=== PATIENT | male | born 1990 | race Two or more races ===

== ENCOUNTER 2022-01-09 11:58 | Emergency (ER) | payer OTHER ==
[~2022-01-09] VITALS: Ht 170.2 cm; Wt 95.3 kg
[2022-01-09] MEDS ORDERED: OSEL75CA PO (14:46)
== END 2022-01-09 14:54 | disposition home or self-care (01) ==
LOC: ER 11:58
DX: J10.1 Influenza due to other identified influenza virus with other respiratory manifestations (principal); Z20.822 Contact with and (suspected) exposure to COVID-19

== ENCOUNTER 2022-03-01 12:18 | Emergency (ER) | payer OTHER ==
[~2022-03-01] VITALS: Ht 170.2 cm; Wt 104.3 kg
[~2022-03-01 12:18] MED LIST: OSEL75CA PO
== END 2022-03-01 19:23 | disposition home or self-care (01) ==
LOC: ER 12:18
DX: S39.82XA Other specified injuries of lower back, initial encounter (principal); S29.8XXA Other specified injuries of thorax, initial encounter; W10.8XXA Fall (on) (from) other stairs and steps, initial encounter; Z91.81 History of falling; Y93.89 Activity, other specified; Y92.098 Other place in other non-institutional residence as the place of occurrence of the external cause; M54.59 Other low back pain; M54.6 Pain in thoracic spine; M54.2 Cervicalgia